=== PATIENT | male | born 1980 | race Caucasian/White ===

== ENCOUNTER 2018-02-11 04:12 | Inpatient (IN) | payer OTHER ==
[2018-02-11] MEDS: NS 1,000 ML IV SCH ×4 (04:19→10:08)
[2018-02-11] MEDS ORDERED: fentaNYL 100 MCG/2 ML INJ IVP ONE ×2 (04:23→04:47)
[2018-02-11 04:35] LABS: PLATELET COUNT 385 10^3/uL (150-400)
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
[2018-02-11 04:47] LABS: INR 1.12 (0.83-1.16); PROTIME(PATIENT) 14.6 SEC (12.0-15.0)
[2018-02-11] MEDS ORDERED: fentaNYL 100 MCG/2 ML INJ ONE ×4 (04:49→17:45)
[2018-02-11] MEDS ORDERED: ONDANSETRON 4 MG/2 ML VIAL IVP PRN (04:52)
[2018-02-11] MEDS ORDERED: NALOXONE HCL 0.4 MG/ML INJ IVP PRN ×2 (04:52→20:32)
[2018-02-11] MEDS ORDERED: ACETAMINOPHEN 325 MG TAB PO PRN (04:52)
[2018-02-11 05:35] LABS: CREATINE KINASE 6711 IU/L (0-224)
[2018-02-11] MEDS ORDERED: SKIN ADHESIVE (DERMABOND) 1 EACH TP ONE (05:58)
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
[2018-02-11] MEDS ORDERED: KETAMINE 200 MG/20 ML VIAL ONE (07:11)
[2018-02-11] MEDS ORDERED: ONDANSETRON 4 MG/2 ML VIAL ONE ×2 (07:22→17:45)
[2018-02-11] MEDS ORDERED: KETAMINE 200 MG/20 ML VIAL IVP ONE (07:46)
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
[2018-02-11] MEDS ORDERED: PROTOCOL POTASSIUM 1 DOSE MISC PRN (08:49)
[2018-02-11] MEDS ORDERED: NS 500 ML IV ONE (09:00)
[2018-02-11] MEDS ORDERED: POTASSIUM Cl (KCl) 100 ML IV SCH (09:30)
--- NOTE | 2018-02-11 09:35 | PDMN ---
Medical Necessity Medical necessity: MCG: M545 rib fractures: three or more traumatic rib fxs, mult. transverse process and spinous process fractures, subtle T5 burst fracture , sternal fx., fx of scapula, humerus, radius, ulna. neuro and sgy consults pending. further monitoring and tx needed , anticipate > 2 midnights
[2018-02-11] MEDS: DEXMEDETOMIDINE HCL 400 MCG in NS 100 ML IV SCH ×2 (09:45→20:13)
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
[2018-02-11] MEDS: POTASSIUM Cl (KCl) 100 ML IV SCH ×4 (09:59→13:17)
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
[2018-02-11 11:37] LABS: CREATINE KINASE 7969 IU/L (0-224)
[2018-02-11 12:30] LABS: PLATELET COUNT 217 10^3/uL (150-400)
[2018-02-11] MEDS ORDERED: EPINEPHrine 1 MG/ML INJ ONE (17:15)
[2018-02-11] MEDS ORDERED: BUPIVACAINE 0.5% 30 ML SDV ONE (17:15)
[2018-02-11] MEDS ORDERED: MIDAZOLAM 2 MG/2 ML VIAL IVP ONE (17:15)
[2018-02-11] MEDS ORDERED: ceFAZolin 2 GM/SWFI 2 GM/20 ML SYR IVP ONE (17:22)
--- NOTE | 2018-02-11 17:22 | PDHPUP ---
History & Physical Update H&P update statement: This history and physical update is based on an assessment of the patient which was completed after admission or registration (within 24 hours), but prior to the surgery/procedure. H&P update: H&P reviewed & patient examined, no change in patient's condition since H&P completed
[2018-02-11] MEDS ORDERED: MIDAZOLAM 2 MG/2 ML VIAL ONE (17:27)
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
[2018-02-11] MEDS ORDERED: PROPOFOL 200 MG/20 ML VIAL ONE ×2 (17:45→18:30)
[2018-02-11] MEDS ORDERED: DEXAMETHASONE 4 MG/ML VIAL ONE (17:45)
[2018-02-11] MEDS ORDERED: LIDOCAINE 2% 100 MG/5 ML SYR ONE (17:45)
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
--- NOTE | 2018-02-11 19:29 | POSTANESTH ---
Post Anesthetic Evaluation Cardiovascular Status: Similar to Pre-Op Cond Respiratory Status: Similar to Pre-op Cond., Tx Decrease in SpO2 Level of Consciousness/Mental Status: Can Participate in Eval, Mildly Sleepy, Arousable Pain Control: Inadeq, Add Tx Required Nausea/Vomiting Control: Adequate, Prn Tx Ordered Complications Possibly Related to Anesthesia: Other, See Comments (Pt. vomited while in lateral position, case cancelled due to possible aspiration)
[2018-02-11] MEDS: ERTAPENEM 1 GM VIAL IV SCH ×2 (19:47→19:48)
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
[2018-02-11] MEDS: morphINE PCA 30 MG/30 ML PCA IV PRN (20:43)
--- NOTE | 2018-02-11 21:05 | GOP ---
[f rep st] OPERATIVE REPORT DATE OF OPERATION: 02/11/2018 SURGEON: Frandy Zavala MD PREOPERATIVE DIAGNOSIS: Left forearm Monteggia fracture dislocation. POSTOPERATIVE DIAGNOSIS: Left forearm Monteggia fracture dislocation. PROCEDURE PERFORMED: aborted ulnar ORIF DESCRIPTION OF PROCEDURE: The patient was brought to the operating room for planned open reduction, internal fixation of the left ulna for Monteggia fracture dislocation. I spoke to the patient and his at length in the ICU. Prior to the procedure, we discussed risks and benefits of surgery. Risks of surgery include pain, bleeding, infection, damage to surrounding structures, stiffness, delayed union, nonunion, need for further operations including hardware removal, the advantage of surgery in his fracture pattern is improved function as he has a fracture pattern where ORIF is indicated. I consulted both the Trauma and Neurosurgery service prior to surgery for clearance for surgery today and he was cleared. The patient was brought to the operating room. [facility] table. Anesthesia was induced by the anesthesia team. The patient was carefully transferred to the lateral decubitus position with left side up. All other transfers and reposition were done with full spinal precautions with a C-collar intact. During positioning prior to preparation of the arm, the patient aspirated what appeared to be coffee-grounds emesis. Due to the aspiration and maintaining adequate saturation, Dr. Keenan and I made a decision to abort the case to stabilize the patient's respiratory status. I did have the opportunity to take the splint down to examine the forearm. There was an abrasion over the posterior forearm. This was cleaned and closely examined. There was no break of the dermis. The patient was stabilized and taken back to the ICU and the case was aborted. /[id number]/MODL MTDD
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
[2018-02-12 04:36] LABS: PLATELET COUNT 151 10^3/uL (150-400)
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
[2018-02-12] MEDS: morphINE PCA 30 MG/30 ML PCA IV PRN (08:37)
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
--- NOTE | 2018-02-12 09:54 | WOCRNPDOC ---
WOCRN Advanced Assessment Note - Skin Integrity Problem, Advanced Assess Right Lower Arm Laceration Dressing Type: Open to Air Wound Bed Constitution: Scab Skin Integrity Problem Comment: Multiple small lacerations all less than 2 cm. No concerns. May leave SHEREE. Ysabel BA in room for assessment. Right Flank Abrasion Dressing Type: Open to Air Wound Bed Constitution: Red/Brutus - Non Granular Tissue Site Measurement - Head-to-Toe Length X Width X Depth (cm): 6x6x0.1 Skin Integrity Problem Comment: Partial thickness abrasion. May apply wound gel and cover with allevyn life. Please reconsult wound care if abrasions become non healing/begin to dry out/necrose. They should be kept covered and moist. Wound care will sign off. Report to Florenciaabram BA.
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
[2018-02-12] MEDS: DEXMEDETOMIDINE HCL 400 MCG in NS 100 ML IV SCH (10:45)
[2018-02-12] MEDS: ENOXAPARIN 40 MG/0.4 ML SYR SC SCH (11:25)
[2018-02-12] MEDS: FAMOTIDINE 20 MG/NACL 50 ML IV SCH ×2 (11:25→21:03)
[2018-02-12] MEDS: NS 1,000 ML IV SCH ×2 (12:00→18:42)
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
[2018-02-13] MEDS: morphINE PCA 30 MG/30 ML PCA IV PRN (05:19)
[2018-02-13] MEDS: DEXMEDETOMIDINE HCL 400 MCG in NS 100 ML IV SCH ×3 (05:19→21:50)
[2018-02-13] MEDS: NS 1,000 ML IV SCH ×3 (05:20→18:38)
[2018-02-13] MEDS: ENOXAPARIN 40 MG/0.4 ML SYR SC SCH (08:10)
[2018-02-13] MEDS: FAMOTIDINE 20 MG/NACL 50 ML IV SCH ×2 (08:16→22:00)
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
[2018-02-13] MEDS ORDERED: BUPIVACAINE 0.5% 30 ML SDV ONE (11:40)
[2018-02-13] MEDS ORDERED: EPINEPHrine 1 MG/ML INJ ONE ×2 (11:53→13:21)
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
[2018-02-13] MEDS ORDERED: fentaNYL 100 MCG/2 ML INJ ONE ×2 (12:53→15:22)
[2018-02-13] MEDS ORDERED: PROPOFOL/EMULSION 500 MG/50 ML BOTTLE IV ONE (12:54)
[2018-02-13] MEDS ORDERED: REMIFENTANIL HCL 1 MG VIAL ONE (12:54)
[2018-02-13] MEDS ORDERED: ceFAZolin 1 GM VIAL ONE ×2 (13:32)
[2018-02-13] MEDS ORDERED: ONDANSETRON 4 MG/2 ML VIAL ONE (13:39)
[2018-02-13] MEDS ORDERED: DEXAMETHASONE 4 MG/ML VIAL ONE (13:39)
[2018-02-13] MEDS ORDERED: PROPOFOL 200 MG/20 ML VIAL ONE (14:28)
[2018-02-13] MEDS ORDERED: MEPERIDINE 25 MG/0.5 ML AMP IVP PRN (15:39)
[2018-02-13] MEDS ORDERED: ONDANSETRON 4 MG/2 ML VIAL IVP PRN (15:39)
[2018-02-13] MEDS ORDERED: PROMETHAZINE HCL 25 MG/ML INJ IVP PRN (15:39)
[2018-02-13] MEDS ORDERED: oxyCODONE IR 5 MG TAB PO PRN (15:39)
[2018-02-13] MEDS ORDERED: DEXAMETHASONE 4 MG/ML VIAL IVP PRN (15:39)
[2018-02-13] MEDS ORDERED: ALBUTEROL 3 ML DEYVIAL IH PRN (15:39)
[2018-02-13] MEDS ORDERED: LR 500 ML IV PRN (15:39)
[2018-02-13] MEDS ORDERED: fentaNYL 100 MCG/2 ML INJ IVP PRN (15:39)
[2018-02-13] MEDS ORDERED: ACETAMINOPHEN 500 MG TAB PO PRN (15:39)
[2018-02-13] MEDS ORDERED: NALOXONE HCL 0.4 MG/ML INJ IVP PRN (15:39)
[2018-02-13] MEDS ORDERED: METOCLOPRAMIDE 10 MG/2 ML VIAL IVP PRN (15:39)
[2018-02-13] MEDS ORDERED: PHENYLEPHRINE HCL 100 MCG/ML SYR IVP PRN (15:39)
[2018-02-13] MEDS ORDERED: HYDROCODONE/APAP 5/325 TAB PO PRN (15:39)
[2018-02-13] MEDS ORDERED: LABETALOL HCL 5 MG/ML 20 ML MDV IVP PRN (15:39)
--- NOTE | 2018-02-13 15:42 | POSTANESTH ---
Post Anesthetic Evaluation Cardiovascular Status: Similar to Pre-Op Cond, Tx Over/Under Hydration (under hydrated) Respiratory Status: Similar to Pre-op Cond., Tx Decrease in SpO2 (rib Fx hypo ventilation) Level of Consciousness/Mental Status: Mildly Sleepy, Arousable Pain Control: Adequate, Prn Tx Ordered Nausea/Vomiting Control: Adequate, Prn Tx Ordered Complications Possibly Related to Anesthesia: None Noted (pain treated as best the paients physical status will allow)
[2018-02-13] MEDS: ERTAPENEM 1 GM VIAL IV SCH (20:06)
[2018-02-13] MEDS: ceFAZolin 2 GM/SWFI 2 GM/20 ML SYR IVP SCH (22:00)
[2018-02-13] MEDS ORDERED: ceFAZolin 2 GM/DEXTROSE 100 ML IV SCH (22:00)
[2018-02-14] MEDS: morphINE PCA 30 MG/30 ML PCA IV PRN ×2 (03:57→15:59)
[2018-02-14] MEDS: ceFAZolin 2 GM/SWFI 2 GM/20 ML SYR IVP SCH ×2 (05:10→13:18)
[2018-02-14] MEDS: DEXMEDETOMIDINE HCL 400 MCG in NS 100 ML IV SCH (05:10)
[2018-02-14] MEDS: NS 1,000 ML IV SCH ×2 (05:11→08:42)
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
[2018-02-14] MEDS: FAMOTIDINE 20 MG TAB PO SCH ×2 (08:42→21:35)
[2018-02-14] MEDS: ENOXAPARIN 40 MG/0.4 ML SYR SC SCH (08:42)
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
[2018-02-14] MEDS: ALBUTEROL 3 ML DEYVIAL IH PRN ×2 (11:50→16:29)
[2018-02-14] MEDS: ACETYLCYSTEINE 10% IH/PO 4 ML VIAL IH SCH ×2 (11:50→16:30)
[2018-02-14] MEDS: oxyCODONE IR 5 MG TAB PO PRN ×2 (13:15→17:56)
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
[2018-02-14] MEDS ORDERED: LACTULOSE 20 GM/30 ML UDCUP PO PRN (19:24)
[2018-02-14] MEDS ORDERED: POLYETHYLENE GLYCOL 3350 17 GM PKT PO PRN (19:24)
[2018-02-14] MEDS ORDERED: BISACODYL 10 MG SUPP PR PRN (19:24)
[2018-02-14] MEDS: SENNOSIDES/DOCUSATE SODIUM TAB PO SCH (21:35)
[2018-02-14] MEDS: ERTAPENEM 1 GM VIAL IV SCH (21:35)
[2018-02-15] MEDS: ACETYLCYSTEINE 10% IH/PO 4 ML VIAL IH SCH ×2 (00:16→06:15)
[2018-02-15] MEDS: morphINE PCA 30 MG/30 ML PCA IV PRN (07:24)
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
[2018-02-15] MEDS: HYDROCODONE/APAP 5/325 TAB PO PRN ×4 (09:23→23:55)
[2018-02-15] MEDS: SENNOSIDES/DOCUSATE SODIUM TAB PO SCH ×2 (09:24→19:34)
[2018-02-15] MEDS: FAMOTIDINE 20 MG TAB PO SCH ×2 (09:25→19:34)
[2018-02-15] MEDS: ENOXAPARIN 40 MG/0.4 ML SYR SC SCH (09:26)
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
--- NOTE | 2018-02-15 11:12 | ASMTCMCOM ---
CM Note CM Note Notes: Family interested in patient participating in In-pt Rehab. He has [employer] as well as [facility]. Order written. would like to tour on Friday 3:30. Lft message for Admissions. Date Signed: 02/15/2018 11:11 AM Electronically Signed By:Cindy Weiss LCSW
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
[2018-02-15] MEDS: IBUPROFEN 800 MG TAB PO SCH ×2 (14:09→22:03)
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
[2018-02-15] MEDS: AMOXICILLIN/CLAVULANATE POT 875/125 MG TAB PO SCH (19:33)
[2018-02-16] MEDS: oxyCODONE IR 5 MG TAB PO PRN ×2 (03:44→17:44)
[2018-02-16] MEDS: IBUPROFEN 800 MG TAB PO SCH ×3 (06:20→21:46)
[2018-02-16] MEDS: HYDROCODONE/APAP 5/325 TAB PO PRN ×4 (06:20→20:31)
[2018-02-16] MEDS: AMOXICILLIN/CLAVULANATE POT 875/125 MG TAB PO SCH ×2 (08:48→20:31)
[2018-02-16] MEDS: ENOXAPARIN 40 MG/0.4 ML SYR SC SCH (08:49)
[2018-02-16] MEDS: FAMOTIDINE 20 MG TAB PO SCH ×2 (08:49→20:31)
[2018-02-16] MEDS: SENNOSIDES/DOCUSATE SODIUM TAB PO SCH ×2 (08:49→20:31)
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
[2018-02-16] MEDS ORDERED: CALCIUM CARBONATE 500 MG CHEWABLE TAB PO PRN (22:53)
[2018-02-17] MEDS: oxyCODONE IR 5 MG TAB PO PRN ×3 (00:39→20:13)
[2018-02-17] MEDS: IBUPROFEN 800 MG TAB PO SCH ×3 (05:20→21:25)
[2018-02-17] MEDS: HYDROCODONE/APAP 5/325 TAB PO PRN ×2 (08:52→18:44)
[2018-02-17] MEDS: SENNOSIDES/DOCUSATE SODIUM TAB PO SCH ×2 (08:54→20:13)
[2018-02-17] MEDS: AMOXICILLIN/CLAVULANATE POT 875/125 MG TAB PO SCH ×2 (08:55→20:13)
[2018-02-17] MEDS: FAMOTIDINE 20 MG TAB PO SCH ×2 (08:55→20:13)
[2018-02-17] MEDS: MAGNESIUM HYDROXIDE 30 ML UDCUP PO PRN (08:55)
[2018-02-17] MEDS: ENOXAPARIN 40 MG/0.4 ML SYR SC SCH (08:55)
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
--- NOTE | 2018-02-17 17:16 | ASMTCMCOM ---
CM Note CM Note Notes: CM spoke w/ Laura Marquez at inpatient rehab. Laura reports that [facility] has declined authorization for inpatient rehab. CM notified Dr. Bonilla and JESENIA Phelps about this update. An MD can do a peer to peer review to over turn the denial. The phone number is [phone]. CM met w/ pt and family for dispo planning. Pt and family would like referral made to [facility] and [facility]. CM to follow. Plan: TBD Date Signed: 02/17/2018 04:55 PM Electronically Signed By:ELIZABETH Garrido
[2018-02-18] MEDS: oxyCODONE IR 5 MG TAB PO PRN ×4 (00:44→22:40)
[2018-02-18] MEDS: HYDROCODONE/APAP 5/325 TAB PO PRN ×3 (04:20→18:18)
[2018-02-18] MEDS: IBUPROFEN 800 MG TAB PO SCH ×3 (05:52→22:40)
[2018-02-18] MEDS: ENOXAPARIN 40 MG/0.4 ML SYR SC SCH (08:48)
[2018-02-18] MEDS: SENNOSIDES/DOCUSATE SODIUM TAB PO SCH ×2 (08:48→22:40)
[2018-02-18] MEDS: FAMOTIDINE 20 MG TAB PO SCH ×2 (08:48→22:40)
[2018-02-18] MEDS: AMOXICILLIN/CLAVULANATE POT 875/125 MG TAB PO SCH ×2 (08:48→22:40)
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
--- NOTE | 2018-02-18 15:22 | ASMTCMCOM ---
CM Note CM Note Notes: Spoke with Laura who states the only way to appeal [facility]'s decision is to have patient's dr. call dr to and discuss why inpatient rehab is appropriate. The number for a dr to is . Patient's parents expressed they would like an attempt to be made. Spoke with Dr. Bonilla's office,(Junaid) and they will give him the message. Patient's parents say the family has decided against [facility]. They are going to [facility] today to check out the facility. [facility] is interested in patient but wants more medical information. Updates were sent today via [employer]. Was unable to get clarification on what ABX patient will be on when he goes to rehab. [facility] needs this information to determine final acceptance into their program. CM will follow. Date Signed: 02/18/2018 03:22 PM Electronically Signed By:Amber Carreon LCSW
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
[2018-02-19] MEDS: IBUPROFEN 800 MG TAB PO SCH ×3 (05:44→21:21)
[2018-02-19] MEDS: HYDROCODONE/APAP 5/325 TAB PO PRN ×3 (05:44→21:21)
[2018-02-19] MEDS: oxyCODONE IR 5 MG TAB PO PRN ×2 (09:15→17:05)
[2018-02-19] MEDS: AMOXICILLIN/CLAVULANATE POT 875/125 MG TAB PO SCH ×2 (10:29→21:20)
[2018-02-19] MEDS: SENNOSIDES/DOCUSATE SODIUM TAB PO SCH ×2 (10:29→21:21)
[2018-02-19] MEDS: ENOXAPARIN 40 MG/0.4 ML SYR SC SCH (10:29)
[2018-02-19] MEDS: MAGNESIUM HYDROXIDE 30 ML UDCUP PO PRN (10:29)
[2018-02-19] MEDS: FAMOTIDINE 20 MG TAB PO SCH ×2 (10:29→21:21)
--- NOTE | 2018-02-19 11:01 | ASMTCMCOM ---
CM Note CM Note Notes: Spoke last night with francois VIZCARRA, he was unable to get through to pt's insurance for the peer to peer. CM called insurance with reference # [id number], they will contact Dr Thomson who is following pt today, Laura at [facility] notified. Pt is aware appeals process, may be today or tomorrow. If declined pt is ok with [facility]. Pt expresses the need to speak with someone about emotional needs. Hoarcio in trauma services has already notified the [facility]ie services. DC Plan: [facility] vs [facility] Date Signed: 02/19/2018 11:00 AM Electronically Signed By:Teresa Tellez RN
--- NOTE | 2018-02-19 15:09 | ASMTCMCOM ---
CM Note CM Note Notes: Received call from trauma MD, he had the peer to peer with insurance MD and was again declined. CM notified pt, he is ok with discharging to [facility]. DC Plan: [facility] Date Signed: 02/19/2018 03:09 PM Electronically Signed By:Teresa Tellez RN
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
[2018-02-20] MEDS: oxyCODONE IR 5 MG TAB PO PRN ×2 (00:59→14:43)
[2018-02-20] MEDS: HYDROCODONE/APAP 5/325 TAB PO PRN ×2 (04:56→09:48)
[2018-02-20] MEDS: IBUPROFEN 800 MG TAB PO SCH ×2 (04:56→14:48)
[2018-02-20 07:25] VITALS: BP 155/93
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
[2018-02-20] MEDS: AMOXICILLIN/CLAVULANATE POT 875/125 MG TAB PO SCH (09:50)
[2018-02-20] MEDS: FAMOTIDINE 20 MG TAB PO SCH (09:51)
[2018-02-20] MEDS: ENOXAPARIN 40 MG/0.4 ML SYR SC SCH (09:51)
[2018-02-20] MEDS: SENNOSIDES/DOCUSATE SODIUM TAB PO SCH (09:51)
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
--- NOTE | 2018-02-20 12:14 | ASMTCAGE ---
CAGE Do you feel you ought to Answers: Yes cut down on your drinking or drug use? Do people annoy you by Answers: No criticizing your drinking or drug use? Do you feel guilty about Answers: No your drinking or drug use? Additional Comments Patient denies any further resources. Date Signed: 02/20/2018 12:13 PM Electronically Signed By:Tere Serrano RN
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
--- NOTE | 2018-02-24 16:46 | PQFORM ---
PHYSICIAN QUERY FORM Needs Your Response This query form is being sent to you to assure this patient record is coded properly. Please respond to the question below: WEB ANALYTICS DEVELOPER QUESTION: Dear Dr. Salter, In reviewing this patient medical record it is noted patient had the diagnosis of 'Aspiration pneumonia.' Patient was scheduled for ORIF on 02/11 but was cancelled due to patient aspirated coffee ground emesis. In SOAP progress notes dated 02/11-02/16 patient was diagnosed with 'Aspiration pneumonia.' In the Site Medical Director progress notes dated 02/12-02/15 patient was noted to have ' Aspiration pneumonia.' After study, should the diagnosis of 'Aspiration pneumonia, not present on admission' be included in the discharge summary? __x__ Yes ____ No ____ Unable to determine ____ Other more appropriate diagnosis (please specify) Thank you LAMAR Grider HIM/Coding Dept. [phone] INSTRUCTIONS FOR RESPONSE: Answer question by clicking on the "Edit Document" button. Move cursor to area below the stars. When complete, hit "Save." Click on the "Sign" button, then click "Sign" again. Type in your PIN and hit "Enter." Yes, the diagnosis of Aspiration pneumonia, not present on admission should be included in the dc summary [facility]
== END 2018-02-20 14:40 | DRG 510 ==
LOC: EDBD 04:12 → F2N 06:55 → F3E 02-16 11:52
PROVIDERS: ADMIT Surgery; ATTEND Surgery
PROC: 0RSKXZZ Reposition Left Shoulder Joint, External Approach (ICD-10-PCS; 2018-02-11)
PROC: 0HQGXZZ Repair Left Hand Skin, External Approach (ICD-10-PCS; 2018-02-11)
PROC: 0HQ1XZZ Repair Face Skin, External Approach (ICD-10-PCS; 2018-02-11)
PROC: 0PSL04Z Reposition Left Ulna with Internal Fixation Device, Open Approach (ICD-10-PCS; principal; 2018-02-13 12:00)
DX: S52.272A Monteggia's fracture of left ulna, initial encounter for closed fracture (principal); J69.0 Pneumonitis due to inhalation of food and vomit; S12.190A Other displaced fracture of second cervical vertebra, initial encounter for closed fracture; S22.040A Wedge compression fracture of fourth thoracic vertebra, initial encounter for closed fracture; S22.050A Wedge compression fracture of T5-T6 vertebra, initial encounter for closed fracture; S22.060A Wedge compression fracture of T7-T8 vertebra, initial encounter for closed fracture; S42.252A Displaced fracture of greater tuberosity of left humerus, initial encounter for closed fracture; S22.42XA Multiple fractures of ribs, left side, initial encounter for closed fracture; S22.20XA Unspecified fracture of sternum, initial encounter for closed fracture; F10.921 Alcohol use, unspecified with intoxication delirium; S12.290A Other displaced fracture of third cervical vertebra, initial encounter for closed fracture; S12.690A Other displaced fracture of seventh cervical vertebra, initial encounter for closed fracture; S42.142A Displaced fracture of glenoid cavity of scapula, left shoulder, initial encounter for closed fracture; T68.XXXA Hypothermia, initial encounter; T79.6XXA Traumatic ischemia of muscle, initial encounter; S83.511A Sprain of anterior cruciate ligament of right knee, initial encounter; V48.0XXA Car driver injured in noncollision transport accident in nontraffic accident, initial encounter; Y92.411 Interstate highway as the place of occurrence of the external cause; Y90.6 Blood alcohol level of 120-199 mg/100 ml; E87.6 Hypokalemia
CPT/HCPCS: 80305; 82947-QW; 92507-GN; 92523-GN; 92610-GN; 96374; 97112-GP; 97116-GP; 97163-GP; 97167-GO; 97530-GO; 97530-GP; 97535-GO; C1713; G0480; J0171; J0690; J1100; J1335; J1650; J2001; J2250; J2270; J2405; J2704; J3010; J3480; J7613; L0174; L1832; L3908

== ENCOUNTER → 2018-02-25 | Outpatient (CLI) | payer OTHER | LOC: BMCIMAGING 09:01 | PROVIDERS: ATTEND Orthopaedic Surgery Hand Surgery | DX: S52.592D Other fractures of lower end of left radius, subsequent encounter for closed fracture with routine healing (principal); M48.54XA Collapsed vertebra, not elsewhere classified, thoracic region, initial encounter for fracture; J93.83 Other pneumothorax ==

== ENCOUNTER → 2018-03-11 | Outpatient (CLI) | payer OTHER | LOC: BMCIMAGING 08:46 | PROVIDERS: ATTEND Orthopaedic Surgery Hand Surgery | DX: S52.272D Monteggia's fracture of left ulna, subsequent encounter for closed fracture with routine healing (principal) ==

== ENCOUNTER → 2018-03-26 | Outpatient (CLI) | payer OTHER | LOC: BMCIMAGING 10:12 | PROVIDERS: ATTEND Orthopaedic Surgery Hand Surgery | DX: S42.102D Fracture of unspecified part of scapula, left shoulder, subsequent encounter for fracture with routine healing (principal); S22.42XA Multiple fractures of ribs, left side, initial encounter for closed fracture; S52.002A Unspecified fracture of upper end of left ulna, initial encounter for closed fracture ==

== ENCOUNTER → 2018-06-29 | Outpatient (CLI) | payer OTHER | LOC: FIMAGING 09:09 | PROVIDERS: ATTEND Physician Assistant | DX: S12.100D Unspecified displaced fracture of second cervical vertebra, subsequent encounter for fracture with routine healing (principal); S22.008A Other fracture of unspecified thoracic vertebra, initial encounter for closed fracture ==

== ENCOUNTER → 2018-07-15 | Outpatient (CLI) | payer OTHER | LOC: BMCIMAGING 09:17 | PROVIDERS: ATTEND Orthopaedic Surgery Hand Surgery | DX: S42.252D Displaced fracture of greater tuberosity of left humerus, subsequent encounter for fracture with routine healing (principal) ==

== ENCOUNTER → 2018-11-25 | Outpatient (CLI) | payer OTHER | LOC: BMCIMAGING 11:11 | PROVIDERS: ATTEND Orthopaedic Surgery Hand Surgery | DX: S42.202G Unspecified fracture of upper end of left humerus, subsequent encounter for fracture with delayed healing (principal); Z87.81 Personal history of (healed) traumatic fracture ==